=== PATIENT | female | born 1995 | race American Indian/Alaskan Native ===

== ENCOUNTER 2017-08-06 06:14 | Inpatient (IN) | payer BC ==
[2017-08-06 07:12] LABS: Alanine Aminotransferase 8 units/L (7-56); Albumin 3.4 g/dL (3.9-5); BUN/Creatinine Ratio 16; Blood Urea Nitrogen 11 mg/dL (7-17); Calcium 8.8 mg/dL (8.4-10.2); Hemolysis Index 0
[2017-08-06 07:25] LABS: Hematocrit 27.8 % (30.3-42.9); Hemoglobin 8.3 gm/dl (10.1-14.3); Mean Corpuscular Volume 64 fl (79-97); Red Blood Count 4.33 M/mm3 (3.65-5.03)
[2017-08-06 07:26] LABS: Mean Corpuscular HGB Conc 30 % (30-34); Mean Corpuscular Hemoglobin 19 pg (28-32); Platelet Count 532 K/mm3 (140-440); Red Cell Distribution Width 18.3 % (13.2-15.2)
[2017-08-06 08:10] LABS: Anisocytosis 1+; Band Neutrophils # (Manual) 0.3 K/mm3; Basophils % (Manual) 0 % (0.0-1.8); Hypochromasia 1+; Total Cells Counted 100
[2017-08-06 08:11] LABS: Ovalocytes Few; Platelet Estimate Consistent w Auto
--- NOTE | 2017-08-06 09:17 | Emergency Department Report ---
ED N/V/D HPI - General Chief complaint: Nausea/Vomiting/Diarrhea Stated complaint: N/V/D Time Seen by Provider: 08/06/17 09:11 Source: patient, family Mode of arrival: Ambulatory Limitations: No Limitations - History of Present Illness Initial comments: This is a 22-year-old female here for nausea vomiting and diarrhea with history of Crohn's disease. She should take steroids for her Crohn's disease. Patient believes that she is having a Crohn's flare up. She is reporting abdominal pain at 8 out of 10. Denies any back pain. Denies any surgical history. Pain is localized to her upper and lower abdomen but mostly laterally to the left abdomen. Reports chills but she says she didn't take a temperature. Similar symptoms a Crohn's flareup. Last menstrual period for 02/15/2018. This started yesterday and she's had perforations several episodes of nausea vomiting and diarrhea. Nothing makes pain better and nothing makes it worse that she has not taken anything for pain. MD complaint: nausea, vomiting, diarrhea, abdominal pain -: Last night Description of Vomiting: bilious Description of Diarrhea: water, blood-streaked Associated Abdominal Pain: Yes Location: diffuse Radiation: none Severity: severe Pain Scale: 8 Quality: cramping, aching Consistency: constant Improves with: none Worsens with: none Context: other (history of Crohn's disease) Associated Symptoms: fever/chills, loss of appetite, nausea/vomiting. denies: myalgias, chest pain, cough, diaphoresis, headaches, malaise, rash, dysuria, shortness of breath, syncope, weakness - Related Data Home Medications Medication Instructions Recorded Confirmed Last Taken Cholecalciferol (Vitamin D3) 2,000 unit PO DAILY 08/06/17 08/06/17 Unknown [Vitamin D3] Multivitamin/Iron/Folic Acid 1 each PO DAILY 08/06/17 08/06/17 Unknown [Centrum Women Tablet] [place]-3 Fatty Acids/Fish Oil [Fish 1 each PO DAILY 08/06/17 08/06/17 Unknown Oil] predniSONE [Deltasone] 60 mg PO QDAY 08/06/17 08/06/17 Unknown Allergies Allergy/AdvReac Type Severity Reaction Status Date / Time shellfish derived AdvReac Vomiting Verified 08/06/17 06:25 ED Review of Systems ROS: Stated complaint: N/V/D Other details as noted in HPI Comment: All other systems reviewed and negative Constitutional: malaise, weakness. denies: chills Eyes: denies: eye pain, eye discharge, vision change ENT: denies: ear pain, throat pain Respiratory: denies: cough, shortness of breath, SOB with exertion, SOB at rest , stridor, wheezing, other Cardiovascular: denies: chest pain, palpitations, dyspnea on exertion, edema, syncope, paroxysmal nocturnal dyspnea Gastrointestinal: abdominal pain, nausea, vomiting, diarrhea, hematochezia. denies: constipation, hematemesis, melena Genitourinary: denies: urgency, dysuria, frequency, hematuria, discharge, abnormal menses Musculoskeletal: denies: back pain, joint swelling, arthralgia Skin: denies: rash, lesions Neurological: weakness. denies: headache ED Past Medical Hx - Past Medical History Previous Medical History?: Yes Additional medical history: crohn's disease - Surgical History Past Surgical History?: No - Family History Family history: hypertension - Social History Smoking Status: Never Smoker Substance Use Type: None Other Social History: single and lives with room mates - Medications Home Medications: Home Medications Medication Instructions Recorded Confirmed Last Taken Type Cholecalciferol (Vitamin D3) 2,000 unit PO DAILY 08/06/17 08/06/17 Unknown History [Vitamin D3] Multivitamin/Iron/Folic Acid 1 each PO DAILY 08/06/17 08/06/17 Unknown History [Centrum Women Tablet] [place]-3 Fatty Acids/Fish Oil [Fish 1 each PO DAILY 08/06/17 08/06/17 Unknown History Oil] predniSONE [Deltasone] 60 mg PO QDAY 08/06/17 08/06/17 Unknown History ED Physical Exam - General Limitations: No Limitations General appearance: alert, in no apparent distress - Head Head exam: Present: atraumatic, normocephalic, normal inspection - Eye Eye exam: Present: normal appearance, PERRL, EOMI Pupils: Present: normal accommodation - ENT ENT exam: Present: normal orophraynx, mucous membranes dry, TM's normal bilaterally, normal external ear exam - Neck Neck exam: Present: normal inspection, full ROM, other (no C-spine tenderness). Absent: tenderness, lymphadenopathy - Respiratory Respiratory exam: Present: normal lung sounds bilaterally. Absent: respiratory distress, chest wall tenderness - Cardiovascular Cardiovascular Exam: Present: normal rhythm, tachycardia, normal heart sounds. Absent: systolic murmur, diastolic murmur - GI/Abdominal GI/Abdominal exam: Present: soft, tenderness, guarding, rebound, normal bowel sounds. Absent: distended, rigid, organomegaly, mass, bruit, pulsatile mass, hernia - Extremities Exam Extremities exam: Present: normal inspection, full ROM, normal capillary refill , other (no clubbing, cyanosis or edema. +2 pulses to all extremities.). Absent: tenderness, pedal edema, joint swelling, calf tenderness - Back Exam Back exam: Present: normal inspection, full ROM, other (ambulates without any difficulties). Absent: tenderness, CVA tenderness (R), CVA tenderness (L), muscle spasm, paraspinal tenderness, vertebral tenderness, rash noted - Neurological Exam Neurological exam: Present: alert, oriented X3, normal gait - Psychiatric Psychiatric exam: Present: normal affect, normal mood - Skin Skin exam: Present: warm, dry, intact, normal color. Absent: rash ED Course Vital Signs 08/06/17 08/06/17 08/06/17 06:21 12:30 12:49 Temperature 99.7 F H 98.1 F 98.5 F Pulse Rate 108 H 93 H 98 H Respiratory 16 15 Rate Blood Pressure 110/70 99/62 Blood Pressure 108/68 [Right] O2 Sat by Pulse 99 100 100 Oximetry - Reevaluation(s) Reevaluation #1: 08/06/17 10:14 Patient's given Zofran 4 mg for nausea and morphine 4 mg IV for pain. Pain is better. Awaiting CT scan with IV contrast. Labs are stable and urinalysis positive for urinary tract infection and positive ketones suggesting dehydration. Patient to start an IV fluids. Reevaluation #2: 08/06/17 11:54 Patient is requesting pain medication. She said her pain is 510. She was given morphine [address] scan showed colitis secondary to Crohn's. Patient to receive Tylenol 975 mg by mouth for fever. Started on Levaquin 750 mg IV and Flagyl 5oo mg iv for colitis. Patient updated on all labs and CT scan results. And plans to admit and she agrees. Dr. White spoke with Dr. Kelly regarding admission. Abdominal exam remained tender to palpate. ED Medical Decision Making - Lab Data Result diagrams: 08/06/17 06:32 08/06/17 06:32 Lab Results 08/06/17 08/06/17 08/06/17 Range/Units 06:32 06:32 09:45 WBC 10.6 (4.5-11.0) K/mm3 RBC 4.33 (3.65-5.03) M/mm3 Hgb 8.3 L (10.1-14.3) gm/dl Hct 27.8 L (30.3-42.9) % MCV 64 L (79-97) fl MCH 19 L (28-32) pg MCHC 30 (30-34) % RDW 18.3 H (13.2-15.2) % Plt Count 532 H (140-440) K/mm3 [place] % (Auto) Disulfurizer Tender Add Manual Diff Complete Total Counted 100 Seg Neuts % (Manual) 54.0 (40.0-70.0) % Band Neutrophils % 3.0 % Lymphocytes % (Manual) 26.0 (13.4-35.0) % Reactive Lymphs % (Man) 0 % Monocytes % (Manual) 15.0 H (0.0-7.3) % Eosinophils % (Manual) 2.0 (0.0-4.3) % Basophils % (Manual) 0 (0.0-1.8) % Metamyelocytes % 0 % Myelocytes % 0 % Promyelocytes % 0 % Blast Cells % 0 % Nucleated RBC % Not Reportable Seg Neutrophils # Man 5.7 (1.8-7.7) K/mm3 Band Neutrophils # 0.3 K/mm3 Lymphocytes # (Manual) 2.8 (1.2-5.4) K/mm3 Abs React Lymphs (Man) 0.0 K/mm3 Monocytes # (Manual) 1.6 H (0.0-0.8) K/mm3 Eosinophils # (Manual) 0.2 (0.0-0.4) K/mm3 Basophils # (Manual) 0.0 (0.0-0.1) K/mm3 Metamyelocytes # 0.0 K/mm3 Myelocytes # 0.0 K/mm3 Promyelocytes # 0.0 K/mm3 Blast Cells # 0.0 K/mm3 WBC Morphology Not Reportable Hypersegmented Neuts Not Reportable Hyposegmented Neuts Not Reportable Hypogranular Neuts Not Reportable Smudge Cells Not Reportable Toxic Granulation Not Reportable Toxic Vacuolation Not Reportable Dohle Bodies Not Reportable Pelger-Huet Anomaly Not Reportable Rosy Rods Not Reportable Platelet Estimate Consistent w auto Clumped Platelets Not Reportable Plt Clumps, EDTA Not Reportable Large Platelets Not Reportable Giant Platelets Not Reportable Platelet Satelliting Not Reportable Plt Morphology Comment Not Reportable RBC Morphology Not Reportable Dimorphic RBCs Not Reportable Polychromasia Not Reportable Hypochromasia 1+ Poikilocytosis Not Reportable Anisocytosis 1+ Microcytosis 1+ Macrocytosis Not Reportable Spherocytes Not Reportable Pappenheimer Bodies Not Reportable Sickle Cells Not Reportable Target Cells Not Reportable Tear Drop Cells Not Reportable Ovalocytes Few Helmet Cells Not Reportable [place] Bodies Not Reportable [place] Rings Not Reportable Hancock Cells Not Reportable Bite Cells Not Reportable Crenated Cell Not Reportable Elliptocytes Not Reportable Acanthocytes (Spur) Not Reportable Rouleaux Not Reportable Hemoglobin C Crystals Not Reportable Schistocytes Not Reportable Malaria parasites Not Reportable Wale Bodies Not Reportable Hem Pathologist Commnt No Sodium 142 (137-145) mmol/L Potassium 3.2 L (3.6-5.0) mmol/L Chloride 101.5 (98-107) mmol/L Carbon Dioxide 28 (22-30) mmol/L Anion Gap 16 mmol/L BUN 11 (7-17) mg/dL Creatinine 0.7 (0.7-1.2) mg/dL Estimated GFR > 60 ml/min BUN/Creatinine Ratio 16 % Glucose 94 (65-100) mg/dL Calcium 8.8 (8.4-10.2) mg/dL Total Bilirubin 0.30 (0.1-1.2) mg/dL AST 8 (5-40) units/L ALT 8 (7-56) units/L Alkaline Phosphatase 61 (35-129) units/L Total Protein 6.7 (6.3-8.2) g/dL Albumin 3.4 L (3.9-5) g/dL Albumin/Globulin Ratio 1.0 % Urine Color Yellow (Yellow) Urine Turbidity Clear (Clear) Urine pH 5.0 (5.0-7.0) Ur Specific [place] 1.024 (1.003-1.030) Urine Protein 30 mg/dl (Negative) mg/dL Urine Glucose (UA) Neg (Negative) mg/dL Urine Ketones Neg (Negative) mg/dL Urine Blood Mod (Negative) Urine Nitrite Neg (Negative) Urine Bilirubin Neg (Negative) Urine Urobilinogen < 2.0 (<2.0) mg/dL Ur Leukocyte Esterase Sm (Negative) Urine WBC (Auto) 8.0 H (0.0-6.0) /HPF Urine RBC (Auto) 9.0 (0.0-6.0) /HPF U Epithel Cells (Auto) 41.0 H (0-13.0) /HPF Urine Bacteria (Auto) 1+ (Negative) /HPF Urine Mucus 1+ /HPF Urine HCG, Qual (Negative) 08/06/17 Range/Units 10:09 WBC (4.5-11.0) K/mm3 RBC (3.65-5.03) M/mm3 Hgb (10.1-14.3) gm/dl Hct (30.3-42.9) % MCV (79-97) fl MCH (28-32) pg MCHC (30-34) % RDW (13.2-15.2) % Plt Count (140-440) K/mm3 [place] % (Auto) Add Manual Diff Total Counted Seg Neuts % (Manual) (40.0-70.0) % Band Neutrophils % % Lymphocytes % (Manual) (13.4-35.0) % Reactive Lymphs % (Man) % Monocytes % (Manual) (0.0-7.3) % Eosinophils % (Manual) (0.0-4.3) % Basophils % (Manual) (0.0-1.8) % Metamyelocytes % % Myelocytes % % Promyelocytes % % Blast Cells % % Nucleated RBC % Seg Neutrophils # Man (1.8-7.7) K/mm3 Band Neutrophils # K/mm3 Lymphocytes # (Manual) (1.2-5.4) K/mm3 Abs React Lymphs (Man) K/mm3 Monocytes # (Manual) (0.0-0.8) K/mm3 Eosinophils # (Manual) (0.0-0.4) K/mm3 Basophils # (Manual) (0.0-0.1) K/mm3 Metamyelocytes # K/mm3 Myelocytes # K/mm3 Promyelocytes # K/mm3 Blast Cells # K/mm3 WBC Morphology Hypersegmented Neuts Hyposegmented Neuts Hypogranular Neuts Smudge Cells Toxic Granulation Toxic Vacuolation Dohle Bodies Pelger-Huet Anomaly Rosy Rods Platelet Estimate Clumped Platelets Plt Clumps, EDTA Large Platelets Giant Platelets Platelet Satelliting Plt Morphology Comment RBC Morphology Dimorphic RBCs Polychromasia Hypochromasia Poikilocytosis Anisocytosis Microcytosis Macrocytosis Spherocytes Pappenheimer Bodies Sickle Cells Target Cells Tear Drop Cells Ovalocytes Helmet Cells [place] Bodies [place] Rings Hancock Cells Bite Cells Crenated Cell Elliptocytes Acanthocytes (Spur) Rouleaux Hemoglobin C Crystals Schistocytes Malaria parasites Wale Bodies Hem Pathologist Commnt Sodium (137-145) mmol/L Potassium (3.6-5.0) mmol/L Chloride (98-107) mmol/L Carbon Dioxide (22-30) mmol/L Anion Gap mmol/L BUN (7-17) mg/dL Creatinine (0.7-1.2) mg/dL Estimated GFR ml/min BUN/Creatinine Ratio % Glucose (65-100) mg/dL Calcium (8.4-10.2) mg/dL Total Bilirubin (0.1-1.2) mg/dL AST (5-40) units/L ALT (7-56) units/L Alkaline Phosphatase (35-129) units/L Total Protein (6.3-8.2) g/dL Albumin (3.9-5) g/dL Albumin/Globulin Ratio % Urine Color (Yellow) Urine Turbidity (Clear) Urine pH (5.0-7.0) Ur Specific [place] (1.003-1.030) Urine Protein (Negative) mg/dL Urine Glucose (UA) (Negative) mg/dL Urine Ketones (Negative) mg/dL Urine Blood (Negative) Urine Nitrite (Negative) Urine Bilirubin (Negative) Urine Urobilinogen (<2.0) mg/dL Ur Leukocyte Esterase (Negative) Urine WBC (Auto) (0.0-6.0) /HPF Urine RBC (Auto) (0.0-6.0) /HPF U Epithel Cells (Auto) (0-13.0) /HPF Urine Bacteria (Auto) (Negative) /HPF Urine Mucus /HPF Urine HCG, Qual Negative (Negative) Blood culture and urine culture pending Lactic acid pending - Radiology Data Radiology results: report reviewed Patient: RAISA JORDAN MR#: [id number] : 1995 Acct:[id number] Age/Sex: 22 / F ADM Date: 08/06/17 Loc: ED Attending Dr: Ordering Physician: OLGA LARRY Date of Service: 08/06/17 Procedure(s): CT abdomen pelvis w con Accession Number(s): [id number] cc: OLGA LARRY CT ABDOMEN AND PELVIS WITH CONTRAST INDICATION: Abdominal pain, nausea, vomiting, diarrhea. COMPARISON: None similar at this institution. FINDINGS: Abdomen and pelvis CT performed following intravenous administration of 100 cc of Omnipaque 300. LUNG BASES: Borderline cardiomegaly. No effusions. Nonspecific distal esophageal wall prominence/thickening, not excluded for gastroesophageal reflux and/or hiatal hernia, amongst others. ABDOMEN: Left hepatic lobe tip wraps around the spleen in the left upper quadrant. Otherwise unremarkable liver, spleen, gallbladder, pancreas, adrenals, aorta, IVC and kidneys. Nonopacified GI tract evaluation limited, though small bowel grossly nonobstructive. Normal appendix. Ascending colon stool. Distal ascending colon from about the hepatic flexure, transverse and entire descending colon though demonstrates diffuse wall thickening. Patent celiac axis, SMA and CEDRIC. No ascites. Few pericolonic lymph nodes as in the upper abdomen measure up to 1.2 cm, axial series 2, image 31. Few other smaller retroperitoneal and mesenteric lymph nodes also seen. PELVIS: Diffuse rectosigmoid wall thickening may extend up to the anus. Few small perirectal lymph nodes measure up to 0.6 cm as on axial image 74, series 2. Urinary bladder, uterus and adnexa/ovaries appear within normal CT limits. No ascites. Unremarkable bones. CONCLUSION: 1. Extensive colitis extending from about the hepatic flexure distally to the anus, possibly infectious or inflammatory, including ulcerative colitis, as described. Please correlate. 2. Few other incidental findings, as above. Thank you for the opportunity to participate in this patient's care. Transcribed By: RS Dictated By: FAN KHALIL MD Electronically Authenticated By: FAN KHALIL MD Signed Date/Time: 08/06/17 1118 - Medical Decision Making Patient: RAISA JORDAN MR#: [id number] : 1995 Acct:[id number] Age/Sex: 22 / F ADM Date: 08/06/17 Loc: ED Attending Dr: Ordering Physician: OLGA LARRY Date of Service: 08/06/17 Procedure(s): CT abdomen pelvis w con Accession Number(s): [id number] cc: OLGA LARRY CT ABDOMEN AND PELVIS WITH CONTRAST INDICATION: Abdominal pain, nausea, vomiting, diarrhea. COMPARISON: None similar at this institution. FINDINGS: Abdomen and pelvis CT performed following intravenous administration of 100 cc of Omnipaque 300. LUNG BASES: Borderline cardiomegaly. No effusions. Nonspecific distal esophageal wall prominence/thickening, not excluded for gastroesophageal reflux and/or hiatal hernia, amongst others. ABDOMEN: Left hepatic lobe tip wraps around the spleen in the left upper quadrant. Otherwise unremarkable liver, spleen, gallbladder, pancreas, adrenals, aorta, IVC and kidneys. Nonopacified GI tract evaluation limited, though small bowel grossly nonobstructive. Normal appendix. Ascending colon stool. Distal ascending colon from about the hepatic flexure, transverse and entire descending colon though demonstrates diffuse wall thickening. Patent celiac axis, SMA and CEDRIC. No ascites. Few pericolonic lymph nodes as in the upper abdomen measure up to 1.2 cm, axial series 2, image 31. Few other smaller retroperitoneal and mesenteric lymph nodes also seen. PELVIS: Diffuse rectosigmoid wall thickening may extend up to the anus. Few small perirectal lymph nodes measure up to 0.6 cm as on axial image 74, series 2. Urinary bladder, uterus and adnexa/ovaries appear within normal CT limits. No ascites. Unremarkable bones. CONCLUSION: 1. Extensive colitis extending from about the hepatic flexure distally to the anus, possibly infectious or inflammatory, including ulcerative colitis, as described. Please correlate. 2. Few other incidental findings, as above. Thank you for the opportunity to participate in this patient's care. Transcribed By: RS Dictated By: FAN KHALIL MD Electronically Authenticated By: FAN KHALIL MD Signed Date/Time: 08/06/17 1118 - Differential Diagnosis Crohn's flare, colitis, UTI, pyelonephritis, gastroenteritis Critical care attestation.: If time is entered above; I have spent that time in minutes in the direct care of this critically ill patient, excluding procedure time. ED Disposition Clinical Impression: Fever in adult, Nausea, vomiting, and diarrhea Crohn's colitis Qualifiers: Digestive disease complication type: unspecified complication Qualified Code(s) : K50.119 - Crohn's disease of large intestine with unspecified complications Abdominal pain Qualifiers: Abdominal location: generalized Qualified Code(s): R10.84 - Generalized abdominal pain Disposition: OP ADMIT IP TO THIS HOSP Is pt being admited?: Yes Does the pt Need Aspirin: No Condition: Stable
[2017-08-06] MEDS ORDERED: MORPHINE IV ONE ×2 (09:20→11:51)
[2017-08-06] MEDS ORDERED: ZOFRAN IV ONE (09:20)
[2017-08-06 10:21] LABS: HCG Qualitative,Urine Negative (Negative)
[2017-08-06 10:22] LABS: Bacteria,Urine 1+ /HPF (Negative); Bilirubin,Urine NEG (Negative); Blood,Urine MOD (Negative); Color,Urine Yellow (Yellow); Mucus,Urine 1+ /HPF; Urobilinogen,Urine < 2.0 mg/dL (<2.0)
[2017-08-06] MEDS ORDERED: NACL 0.9% 1000 ML 1,000 ML IV ONE (11:13)
[2017-08-06] MEDS ORDERED: ROCEPHIN/NS 1 GM/50 ML 1 GM/50 ML BAG IV ONE (11:13)
--- NOTE | 2017-08-06 11:24 | Cat Scan Report ---
CT ABDOMEN AND PELVIS WITH CONTRAST INDICATION: Abdominal pain, nausea, vomiting, diarrhea. COMPARISON: None similar at this institution. FINDINGS: Abdomen and pelvis CT performed following intravenous administration of 100 cc of Omnipaque 300. LUNG BASES: Borderline cardiomegaly. No effusions. Nonspecific distal esophageal wall prominence/thickening, not excluded for gastroesophageal reflux and/or hiatal hernia, amongst others. ABDOMEN: Left hepatic lobe tip wraps around the spleen in the left upper quadrant. Otherwise unremarkable liver, spleen, gallbladder, pancreas, adrenals, aorta, IVC and kidneys. Nonopacified GI tract evaluation limited, though small bowel grossly nonobstructive. Normal appendix. Ascending colon stool. Distal ascending colon from about the hepatic flexure, transverse and entire descending colon though demonstrates diffuse wall thickening. Patent celiac axis, SMA and CEDRIC. No ascites. Few pericolonic lymph nodes as in the upper abdomen measure up to 1.2 cm, axial series 2, image 31. Few other smaller retroperitoneal and mesenteric lymph nodes also seen. PELVIS: Diffuse rectosigmoid wall thickening may extend up to the anus. Few small perirectal lymph nodes measure up to 0.6 cm as on axial image 74, series 2. Urinary bladder, uterus and adnexa/ovaries appear within normal CT limits. No ascites. Unremarkable bones. CONCLUSION: 1. Extensive colitis extending from about the hepatic flexure distally to the anus, possibly infectious or inflammatory, including ulcerative colitis, as described. Please correlate. 2. Few other incidental findings, as above. Thank you for the opportunity to participate in this patient's care.
[2017-08-06] MEDS ORDERED: LEVAQUIN 750MG/150ML 750 MG/150 ML BAG IV ONE (11:33)
[2017-08-06] MEDS ORDERED: SODIUM CHLORIDE FLUSH SYRINGE 10 ML IV PRN (11:47)
[2017-08-06] MEDS ORDERED: cefTRIAXone 1 GM in NACL 0.9% 20 ML IV ONE (12:00)
--- NOTE | 2017-08-06 12:02 | Emergency Department Report ---
Blank Doc - Documentation Documentation: [id number] evaluation is done by me and I agree with the AP P evaluation and documentation. Patient showing significant pain secondary to Crohn's exacerbation. Patient will be admitted to the hospitalist service. The patient has received Levaquin and Flagyl for antibiotic therapy.
[2017-08-06] MEDS: TYLENOL PO ONE ×2 (12:29→12:33)
[2017-08-06] MEDS: FLAGYL 500 MG/100 ML 500 MG/100 ML BAG IV SCH ×3 (15:21→21:41)
--- NOTE | 2017-08-06 16:18 | History and Physical Report ---
History of Present Illness Date of admission: 08/06/17 11:47 Medications and Allergies Allergies Allergy/AdvReac Type Severity Reaction Status Date / Time shellfish derived AdvReac Vomiting Verified 08/06/17 06:25 Home Medications Medication Instructions Recorded Confirmed Last Taken Type Cholecalciferol (Vitamin D3) 2,000 unit PO DAILY 08/06/17 08/06/17 Unknown History [Vitamin D3] Multivitamin/Iron/Folic Acid 1 each PO DAILY 08/06/17 08/06/17 Unknown History [Centrum Women Tablet] [place]-3 Fatty Acids/Fish Oil [Fish 1 each PO DAILY 08/06/17 08/06/17 Unknown History Oil] predniSONE [Deltasone] 60 mg PO QDAY 08/06/17 08/06/17 Unknown History Active Meds: Active Medications Metronidazole (Flagyl 500 Mg/100 Ml) 500 mg in 100 mls @ 200 mls/hr IV ONCE BONG Last Admin: 08/06/17 15:21 Dose: 200 mls/hr Sodium Chloride (Sodium Chloride Flush Syringe 10 Ml) 10 ml IV PRN PRN PRN Reason: LINE FLUSH Exam - Constitutional Vitals: Temp Pulse Resp BP Pulse Ox 99.1 F 93 H 18 99/57 100 08/06/17 14:53 08/06/17 14:53 08/06/17 14:53 08/06/17 14:53 08/06/17 14:53 Results - Labs CBC & Chem 7: 08/06/17 06:32 08/06/17 06:32 Labs: Laboratory Last Values WBC 10.6 K/mm3 (4.5-11.0) 08/06/17 06:32 RBC 4.33 M/mm3 (3.65-5.03) 08/06/17 06:32 Hgb 8.3 gm/dl (10.1-14.3) L 08/06/17 06:32 Hct 27.8 % (30.3-42.9) L 08/06/17 06:32 MCV 64 fl (79-97) L 08/06/17 06:32 MCH 19 pg (28-32) L 08/06/17 06:32 MCHC 30 % (30-34) 08/06/17 06:32 RDW 18.3 % (13.2-15.2) H 08/06/17 06:32 Plt Count 532 K/mm3 (140-440) H 08/06/17 06:32 [place] % (Auto) Horticulture Superintendent 08/06/17 06:32 Add Manual Diff Complete 08/06/17 06:32 Total Counted 100 08/06/17 06:32 Seg Neuts % (Manual) 54.0 % (40.0-70.0) 08/06/17 06:32 Band Neutrophils % 3.0 % 08/06/17 06:32 Lymphocytes % (Manual) 26.0 % (13.4-35.0) 08/06/17 06:32 Reactive Lymphs % (Man) 0 % 08/06/17 06:32 Monocytes % (Manual) 15.0 % (0.0-7.3) H 08/06/17 06:32 Eosinophils % (Manual) 2.0 % (0.0-4.3) 08/06/17 06:32 Basophils % (Manual) 0 % (0.0-1.8) 08/06/17 06:32 Metamyelocytes % 0 % 08/06/17 06:32 Myelocytes % 0 % 08/06/17 06:32 Promyelocytes % 0 % 08/06/17 06:32 Blast Cells % 0 % 08/06/17 06:32 Nucleated RBC % Not Reportable 08/06/17 06:32 Seg Neutrophils # Man 5.7 K/mm3 (1.8-7.7) 08/06/17 06:32 Band Neutrophils # 0.3 K/mm3 08/06/17 06:32 Lymphocytes # (Manual) 2.8 K/mm3 (1.2-5.4) 08/06/17 06:32 Abs React Lymphs (Man) 0.0 K/mm3 08/06/17 06:32 Monocytes # (Manual) 1.6 K/mm3 (0.0-0.8) H 08/06/17 06:32 Eosinophils # (Manual) 0.2 K/mm3 (0.0-0.4) 08/06/17 06:32 Basophils # (Manual) 0.0 K/mm3 (0.0-0.1) 08/06/17 06:32 Metamyelocytes # 0.0 K/mm3 08/06/17 06:32 Myelocytes # 0.0 K/mm3 08/06/17 06:32 Promyelocytes # 0.0 K/mm3 08/06/17 06:32 Blast Cells # 0.0 K/mm3 08/06/17 06:32 WBC Morphology Not Reportable 08/06/17 06:32 Hypersegmented Neuts Not Reportable 08/06/17 06:32 Hyposegmented Neuts Not Reportable 08/06/17 06:32 Hypogranular Neuts Not Reportable 08/06/17 06:32 Smudge Cells Not Reportable 08/06/17 06:32 Toxic Granulation Not Reportable 08/06/17 06:32 Toxic Vacuolation Not Reportable 08/06/17 06:32 Dohle Bodies Not Reportable 08/06/17 06:32 Pelger-Huet Anomaly Not Reportable 08/06/17 06:32 Rosy Rods Not Reportable 08/06/17 06:32 Platelet Estimate Consistent w auto 08/06/17 06:32 Clumped Platelets Not Reportable 08/06/17 06:32 Plt Clumps, EDTA Not Reportable 08/06/17 06:32 Large Platelets Not Reportable 08/06/17 06:32 Giant Platelets Not Reportable 08/06/17 06:32 Platelet Satelliting Not Reportable 08/06/17 06:32 Plt Morphology Comment Not Reportable 08/06/17 06:32 RBC Morphology Not Reportable 08/06/17 06:32 Dimorphic RBCs Not Reportable 08/06/17 06:32 Polychromasia Not Reportable 08/06/17 06:32 Hypochromasia 1+ 08/06/17 06:32 Poikilocytosis Not Reportable 08/06/17 06:32 Anisocytosis 1+ 08/06/17 06:32 Microcytosis 1+ 08/06/17 06:32 Macrocytosis Not Reportable 08/06/17 06:32 Spherocytes Not Reportable 08/06/17 06:32 Pappenheimer Bodies Not Reportable 08/06/17 06:32 Sickle Cells Not Reportable 08/06/17 06:32 Target Cells Not Reportable 08/06/17 06:32 Tear Drop Cells Not Reportable 08/06/17 06:32 Ovalocytes Few 08/06/17 06:32 Helmet Cells Not Reportable 08/06/17 06:32 Desir-[place] Bodies Not Reportable 08/06/17 06:32 [place] Rings Not Reportable 08/06/17 06:32 [place] Cells Not Reportable 08/06/17 06:32 Bite Cells Not Reportable 08/06/17 06:32 Crenated Cell Not Reportable 08/06/17 06:32 Elliptocytes Not Reportable 08/06/17 06:32 Acanthocytes (Spur) Not Reportable 08/06/17 06:32 Rouleaux Not Reportable 08/06/17 06:32 Hemoglobin C Crystals Not Reportable 08/06/17 06:32 Schistocytes Not Reportable 08/06/17 06:32 Malaria parasites Not Reportable 08/06/17 06:32 Wale Bodies Not Reportable 08/06/17 06:32 Hem Pathologist Commnt No 08/06/17 06:32 Sodium 142 mmol/L (137-145) 08/06/17 06:32 Potassium 3.2 mmol/L (3.6-5.0) L 08/06/17 06:32 Chloride 101.5 mmol/L (98-107) 08/06/17 06:32 Carbon Dioxide 28 mmol/L (22-30) 08/06/17 06:32 Anion Gap 16 mmol/L 08/06/17 06:32 BUN 11 mg/dL (7-17) 08/06/17 06:32 Creatinine 0.7 mg/dL (0.7-1.2) 08/06/17 06:32 Estimated GFR > 60 ml/min 08/06/17 06:32 BUN/Creatinine Ratio 16 % 08/06/17 06:32 Glucose 94 mg/dL (65-100) 08/06/17 06:32 Lactic Acid 0.70 mmol/L (0.7-2.0) 08/06/17 12:02 Calcium 8.8 mg/dL (8.4-10.2) 08/06/17 06:32 Total Bilirubin 0.30 mg/dL (0.1-1.2) 08/06/17 06:32 AST 8 units/L (5-40) 08/06/17 06:32 ALT 8 units/L (7-56) 08/06/17 06:32 Alkaline Phosphatase 61 units/L (35-129) 08/06/17 06:32 Total Protein 6.7 g/dL (6.3-8.2) 08/06/17 06:32 Albumin 3.4 g/dL (3.9-5) L 08/06/17 06:32 Albumin/Globulin Ratio 1.0 % 08/06/17 06:32 Urine Color Yellow (Yellow) 08/06/17 09:45 Urine Turbidity Clear (Clear) 08/06/17 09:45 Urine pH 5.0 (5.0-7.0) 08/06/17 09:45 Ur Specific [place] 1.024 (1.003-1.030) 08/06/17 09:45 Urine Protein 30 mg/dl mg/dL (Negative) 08/06/17 09:45 Urine Glucose (UA) Neg mg/dL (Negative) 08/06/17 09:45 Urine Ketones Neg mg/dL (Negative) 08/06/17 09:45 Urine Blood Mod (Negative) 08/06/17 09:45 Urine Nitrite Neg (Negative) 08/06/17 09:45 Urine Bilirubin Neg (Negative) 08/06/17 09:45 Urine Urobilinogen < 2.0 mg/dL (<2.0) 08/06/17 09:45 Ur Leukocyte Esterase Sm (Negative) 08/06/17 09:45 Urine WBC (Auto) 8.0 /HPF (0.0-6.0) H 08/06/17 09:45 Urine RBC (Auto) 9.0 /HPF (0.0-6.0) 08/06/17 09:45 U Epithel Cells (Auto) 41.0 /HPF (0-13.0) H 08/06/17 09:45 Urine Bacteria (Auto) 1+ /HPF (Negative) 08/06/17 09:45 Urine Mucus 1+ /HPF 08/06/17 09:45 Urine HCG, Qual Negative (Negative) 08/06/17 10:09 Assessment and Plan Assessment and plan: This is a 22-year-old female here for nausea vomiting and diarrhea with history of Crohn's disease. She should take steroids for her Crohn's disease. Patient believes that she is having a Crohn's flare up. She is reporting abdominal pain at 8 out of 10. Denies any back pain. Denies any surgical history. Pain is localized to her upper and lower abdomen but mostly laterally to the left abdomen. Reports chills but she says she didn't take a temperature. Similar symptoms a Crohn's flareup. Last menstrual period for 02/15/2018. This started yesterday and she's had perforations several episodes of nausea vomiting and diarrhea. Nothing makes pain better and nothing makes it worse that she has not taken anything for pain. CT abdomen and pelvis, image reviewed Extensive colitis extending from about the hepatic flexure distally to the anus, possibly infectious or inflammatory, including ulcerative colitis, as described. Please correlate. Crohn's flare, colitis, UTI, pyelonephritis, gastroenteritis Crohns flare steroids and pain meds, and ivf Colitis; likely due to crohns , possibly infectious abx, stool studies, GI consult Sepsis; uti fup urine cx, continue abx AOCD fup hg, iron supplements hypokalemia replete DVT ppx early ambulation
[2017-08-06] MEDS ORDERED: TYLENOL PO PRN (16:19)
[2017-08-06] MEDS ORDERED: ZOFRAN IV PRN (16:19)
[2017-08-06] MEDS ORDERED: PERCOCET 5/325 PO PRN (16:54)
[2017-08-06] MEDS: NS/KCL 20MEQ 20 MEQ/1,000 ML BAG IV SCH (17:10)
[2017-08-06] MEDS: DILAUDID IV PRN (17:10)
[2017-08-07] MEDS: NS/KCL 20MEQ 20 MEQ/1,000 ML BAG IV SCH ×3 (01:47→21:26)
[2017-08-07] MEDS: FLAGYL 500 MG/100 ML 500 MG/100 ML BAG IV SCH ×4 (05:50→21:26)
[2017-08-07 07:05] LABS: Hematocrit 29.3 % (30.3-42.9); Hemoglobin 8.6 gm/dl (10.1-14.3); Mean Corpuscular Volume 65 fl (79-97); Red Blood Count 4.54 M/mm3 (3.65-5.03)
[2017-08-07 07:06] LABS: Mean Corpuscular Hemoglobin 19 pg (28-32)
[2017-08-07 07:07] LABS: BUN/Creatinine Ratio 10; Blood Urea Nitrogen 6 mg/dL (7-17); Calcium 8.4 mg/dL (8.4-10.2); Hemolysis Index 5; Mean Corpuscular HGB Conc 29 % (30-34); Mean Platelet Volume 6.5 fl (6-12); Platelet Count 560 K/mm3 (140-440); Red Cell Distribution Width 18.5 % (13.2-15.2)
[2017-08-07 08:32] LABS: Band Neutrophils # (Manual) 2.9 K/mm3; Basophils % (Manual) 0 % (0.0-1.8); Eosinophils % (Manual) 0 % (0.0-4.3); Total Cells Counted 100
[2017-08-07 08:33] LABS: Anisocytosis 1+; Hypochromasia 2+; Ovalocytes Few; Platelet Estimate Appears Increased
--- NOTE | 2017-08-07 09:23 | Event Note ---
Date: 08/07/17 - full consult dictated - pt h/o IBD presents w/ flair now doing better - diet as tolerated - probably ok to d/c in am w/ f/u Dr. Gallardo (primary GI)
--- NOTE | 2017-08-07 10:28 | Progress Note ---
Assessment and Plan Assessment and plan: This is a 22-year-old female here for nausea vomiting and diarrhea with history of Crohn's disease. She should take steroids for her Crohn's disease. Patient believes that she is having a Crohn's flare up. She is reporting abdominal pain at 8 out of 10. Denies any back pain. Denies any surgical history. Pain is localized to her upper and lower abdomen but mostly laterally to the left abdomen. Reports chills but she says she didn't take a temperature. Similar symptoms a Crohn's flareup. Last menstrual period for 02/15/2018. This started yesterday and she's had perforations several episodes of nausea vomiting and diarrhea. Nothing makes pain better and nothing makes it worse that she has not taken anything for pain. CT abdomen and pelvis, image reviewed Extensive colitis extending from about the hepatic flexure distally to the anus, possibly infectious or inflammatory, including ulcerative colitis, as described. Please correlate. Crohn's flare, colitis, UTI, pyelonephritis, gastroenteritis Crohns flare steroids and pain meds, and ivf Colitis; likely due to crohns , possibly infectious abx, stool studies, GI consult Sepsis; uti fup urine cx, continue abx AOCD fup hg, iron supplements hypokalemia replete DVT ppx early ambulation Hospitalist Physical - Constitutional Vitals: Temp Pulse Resp BP Pulse Ox 98.4 F 89 19 103/65 100 08/07/17 07:22 08/07/17 07:22 08/07/17 07:22 08/07/17 07:22 08/07/17 07:22 Results - Labs CBC & Chem 7: 08/07/17 06:25 08/07/17 06:25 Labs: Laboratory Last Values WBC 9.0 K/mm3 (4.5-11.0) 08/07/17 06:25 RBC 4.54 M/mm3 (3.65-5.03) 08/07/17 06:25 Hgb 8.6 gm/dl (10.1-14.3) L 08/07/17 06:25 Hct 29.3 % (30.3-42.9) L 08/07/17 06:25 MCV 65 fl (79-97) L 08/07/17 06:25 MCH 19 pg (28-32) L 08/07/17 06:25 MCHC 29 % (30-34) L 08/07/17 06:25 RDW 18.5 % (13.2-15.2) H 08/07/17 06:25 Plt Count 560 K/mm3 (140-440) H 08/07/17 06:25 [place] % (Auto) Inspector Filter Tip 08/06/17 06:32 Add Manual Diff Complete 08/07/17 06:25 Total Counted 100 08/07/17 06:25 Seg Neuts % (Manual) 55.0 % (40.0-70.0) 08/07/17 06:25 Band Neutrophils % 32.0 % 08/07/17 06:25 Lymphocytes % (Manual) 9.0 % (13.4-35.0) L 08/07/17 06:25 Reactive Lymphs % (Man) 0 % 08/07/17 06:25 Monocytes % (Manual) 1.0 % (0.0-7.3) 08/07/17 06:25 Eosinophils % (Manual) 0 % (0.0-4.3) 08/07/17 06:25 Basophils % (Manual) 0 % (0.0-1.8) 08/07/17 06:25 Metamyelocytes % 3.0 % 08/07/17 06:25 Myelocytes % 0 % 08/07/17 06:25 Promyelocytes % 0 % 08/07/17 06:25 Blast Cells % 0 % 08/07/17 06:25 Nucleated RBC % Not Reportable 08/07/17 06:25 Seg Neutrophils # Man 5.0 K/mm3 (1.8-7.7) 08/07/17 06:25 Band Neutrophils # 2.9 K/mm3 08/07/17 06:25 Lymphocytes # (Manual) 0.8 K/mm3 (1.2-5.4) L 08/07/17 06:25 Abs React Lymphs (Man) 0.0 K/mm3 08/07/17 06:25 Monocytes # (Manual) 0.1 K/mm3 (0.0-0.8) 08/07/17 06:25 Eosinophils # (Manual) 0.0 K/mm3 (0.0-0.4) 08/07/17 06:25 Basophils # (Manual) 0.0 K/mm3 (0.0-0.1) 08/07/17 06:25 Metamyelocytes # 0.3 K/mm3 08/07/17 06:25 Myelocytes # 0.0 K/mm3 08/07/17 06:25 Promyelocytes # 0.0 K/mm3 08/07/17 06:25 Blast Cells # 0.0 K/mm3 08/07/17 06:25 WBC Morphology Not Reportable 08/07/17 06:25 Hypersegmented Neuts Not Reportable 08/07/17 06:25 Hyposegmented Neuts Not Reportable 08/07/17 06:25 Hypogranular Neuts Not Reportable 08/07/17 06:25 Smudge Cells Not Reportable 08/07/17 06:25 Toxic Granulation Not Reportable 08/07/17 06:25 Toxic Vacuolation Not Reportable 08/07/17 06:25 Dohle Bodies Not Reportable 08/07/17 06:25 Pelger-Huet Anomaly Not Reportable 08/07/17 06:25 Rosy Rods Not Reportable 08/07/17 06:25 Platelet Estimate Appears increased 08/07/17 06:25 Clumped Platelets Not Reportable 08/07/17 06:25 Plt Clumps, EDTA Not Reportable 08/07/17 06:25 Large Platelets Not Reportable 08/07/17 06:25 Giant Platelets Not Reportable 08/07/17 06:25 Platelet Satelliting Not Reportable 08/07/17 06:25 Plt Morphology Comment Not Reportable 08/07/17 06:25 RBC Morphology Not Reportable 08/07/17 06:25 Dimorphic RBCs Not Reportable 08/07/17 06:25 Polychromasia Not Reportable 08/07/17 06:25 Hypochromasia 2+ 08/07/17 06:25 Poikilocytosis Not Reportable 08/07/17 06:25 Anisocytosis 1+ 08/07/17 06:25 Microcytosis 1+ 08/07/17 06:25 Macrocytosis Not Reportable 08/07/17 06:25 Spherocytes Not Reportable 08/07/17 06:25 Pappenheimer Bodies Not Reportable 08/07/17 06:25 Sickle Cells Not Reportable 08/07/17 06:25 Target Cells Not Reportable 08/07/17 06:25 Tear Drop Cells Not Reportable 08/07/17 06:25 Ovalocytes Few 08/07/17 06:25 Helmet Cells Not Reportable 08/07/17 06:25 Desir-[place] Bodies Not Reportable 08/07/17 06:25 [place] Rings Not Reportable 08/07/17 06:25 [place] Cells Not Reportable 08/07/17 06:25 Bite Cells Not Reportable 08/07/17 06:25 Crenated Cell Not Reportable 08/07/17 06:25 Elliptocytes Not Reportable 08/07/17 06:25 Acanthocytes (Spur) Not Reportable 08/07/17 06:25 Rouleaux Not Reportable 08/07/17 06:25 Hemoglobin C Crystals Not Reportable 08/07/17 06:25 Schistocytes Not Reportable 08/07/17 06:25 Malaria parasites Not Reportable 08/07/17 06:25 Wale Bodies Not Reportable 08/07/17 06:25 Hem Pathologist Commnt No 08/07/17 06:25 Sodium 137 mmol/L (137-145) 08/07/17 06:25 Potassium 4.1 mmol/L (3.6-5.0) D 08/07/17 06:25 Chloride 98.9 mmol/L (98-107) 08/07/17 06:25 Carbon Dioxide 25 mmol/L (22-30) 08/07/17 06:25 Anion Gap 17 mmol/L 08/07/17 06:25 BUN 6 mg/dL (7-17) L 08/07/17 06:25 Creatinine 0.6 mg/dL (0.7-1.2) L 08/07/17 06:25 Estimated GFR > 60 ml/min 08/07/17 06:25 BUN/Creatinine Ratio 10 % 08/07/17 06:25 Glucose 131 mg/dL (65-100) H 08/07/17 06:25 Lactic Acid 0.70 mmol/L (0.7-2.0) 08/06/17 12:02 Calcium 8.4 mg/dL (8.4-10.2) 08/07/17 06:25 Magnesium 1.80 mg/dL (1.7-2.3) 08/07/17 06:25 Total Bilirubin 0.30 mg/dL (0.1-1.2) 08/06/17 06:32 AST 8 units/L (5-40) 08/06/17 06:32 ALT 8 units/L (7-56) 08/06/17 06:32 Alkaline Phosphatase 61 units/L (35-129) 08/06/17 06:32 Total Protein 6.7 g/dL (6.3-8.2) 08/06/17 06:32 Albumin 3.4 g/dL (3.9-5) L 08/06/17 06:32 Albumin/Globulin Ratio 1.0 % 08/06/17 06:32 Urine Color Yellow (Yellow) 08/06/17 09:45 Urine Turbidity Clear (Clear) 08/06/17 09:45 Urine pH 5.0 (5.0-7.0) 08/06/17 09:45 Ur Specific [place] 1.024 (1.003-1.030) 08/06/17 09:45 Urine Protein 30 mg/dl mg/dL (Negative) 08/06/17 09:45 Urine Glucose (UA) Neg mg/dL (Negative) 08/06/17 09:45 Urine Ketones Neg mg/dL (Negative) 08/06/17 09:45 Urine Blood Mod (Negative) 08/06/17 09:45 Urine Nitrite Neg (Negative) 08/06/17 09:45 Urine Bilirubin Neg (Negative) 08/06/17 09:45 Urine Urobilinogen < 2.0 mg/dL (<2.0) 08/06/17 09:45 Ur Leukocyte Esterase Sm (Negative) 08/06/17 09:45 Urine WBC (Auto) 8.0 /HPF (0.0-6.0) H 08/06/17 09:45 Urine RBC (Auto) 9.0 /HPF (0.0-6.0) 08/06/17 09:45 U Epithel Cells (Auto) 41.0 /HPF (0-13.0) H 08/06/17 09:45 Urine Bacteria (Auto) 1+ /HPF (Negative) 08/06/17 09:45 Urine Mucus 1+ /HPF 08/06/17 09:45 Urine HCG, Qual Negative (Negative) 08/06/17 10:09
[2017-08-07] MEDS: LEVAQUIN 750MG/150ML 750 MG/150 ML BAG IV SCH (10:32)
--- NOTE | 2017-08-07 20:32 | Consultation ---
REFERRING PHYSICIAN: Lilo Meier MD INDICATION: 1. Abdominal pain. 2. Inflammatory bowel disease. HISTORY OF PRESENT ILLNESS: The patient is a 22-year-old black female with a history of inflammatory bowel disease, now presents for evaluation. The patient reports she was initially told she had ulcerative colitis and then more recently at . The patient reports she was on Remicade until 2 years ago when due to insurance and other reasons she stopped taking the medicine. She reports for the most part, she was stable. She reports recently she started having flare and saw Dr. Gallardo and had a colonoscopy within the last month. She reports she was on prednisone p.o. with plans to restart Remicade. The patient reports she started having 4 days' of lower abdominal pain with bloody stools and subsequently came to the Emergency Room. In the Emergency Room, she was assessed and CT scan done, which showed left-sided colitis. She subsequently admitted and GI consulted. She denies any upper GI symptoms. She denies any other specific GI problems or complaints. She denies any nausea or vomiting. PAST MEDICAL HISTORY: Inflammatory bowel disease. MEDICATIONS: See chart. ALLERGIES: No known drug allergies. SOCIAL HISTORY: Denies alcohol, tobacco, or IV drug abuse. FAMILY HISTORY: Negative for colon cancer, IBD, or liver disease. REVIEW OF SYSTEMS: GENERAL: She reports mild weakness. HEENT: No visual complaints or tinnitus. PULMONARY: No shortness of breath. No cough. No chest pain. GASTROINTESTINAL: Reports abdominal pain and loose stool. All points of 13-point review of systems otherwise negative. PHYSICAL EXAMINATION: VITAL SIGNS: Temperature of 98.4, pulse 89, respirations 18, blood pressure 103/65. GENERAL: Fairly nourished black female, in no acute distress. HEENT: Pupils equal, round and reactive to light and accommodation. Extraocular muscles are intact. PULMONARY: Clear to auscultation bilaterally. CARDIOVASCULAR: Regular rhythm. Normal S1, S2. ABDOMEN: Positive bowel sounds, soft. SKIN: No obvious rashes. LABORATORY AND DIAGNOSTIC DATA: Labs pertinent for white count of 9, hemoglobin and hematocrit of 8.6 and 29.3, platelet count of 560. Chem-7 is within normal limits. LFTs are within normal limits. CT scan showed colitis from the hepatic flexure and distally. ASSESSMENT: A 22-year-old female, inflammatory bowel disease with recent flare, now presents to [facility] with abdominal pain and bloody stools. The patient reports she was started on IV steroids overnight and is now feeling much better. She is tolerating p.o. Management is noted below. PLAN: 1. We will get TPN, hepatitis B labs as the patient is unsure of those were drawn by Dr. Gallardo. 2. Advance diet. 3. Continue steroids IV. The patient most likely can be switched to p.o. in a.m. 4. Team had started Levaquin and Flagyl and okay to continue for now, but will probably okay to discontinue soon. 5. Plan if stable in a.m. or okay to discharge from GI standpoint. We will follow up with Dr. Gallardo as an outpatient. JOB# [id number] [facility]
[2017-08-07] MEDS: DILAUDID IV PRN (22:55)
[2017-08-08] MEDS: NS/KCL 20MEQ 20 MEQ/1,000 ML BAG IV SCH (05:35)
[2017-08-08] MEDS: FLAGYL 500 MG/100 ML 500 MG/100 ML BAG IV SCH ×2 (05:35→14:18)
[2017-08-08] MEDS: DILAUDID IV PRN (07:36)
[2017-08-08 08:04] VITALS: BP 113/72
--- NOTE | 2017-08-08 09:18 | Gastroenterology Progress Note ---
Assessment and Plan GI: stable w/ mild rectal bleeding - ok to d/c on p.o. prednisone, Flagyl po ok, d/c levaquin - pt has f/u appoint regular GI - will sign off, call if needed Subjective Date of service: 08/08/17 Interval history: - reports mild rectal bleeding, otherwise stable Objective - Constitutional Vitals: Temp Pulse Resp BP Pulse Ox 98.2 F 86 19 113/72 100 08/08/17 07:36 08/08/17 07:36 08/08/17 07:36 08/08/17 07:36 08/08/17 07:36 General appearance: no acute distress - EENT Eyes: PERRL - Respiratory Respiratory: bilateral: CTA - Cardiovascular Rhythm: regular Heart Sounds: Present: S1 & S2 - Gastrointestinal General gastrointestinal: Present: soft, non-tender, non-distended - Labs CBC & Chem 7: 08/07/17 06:25 08/07/17 06:25 Labs: Laboratory Results - last 24 hr 08/08/17 06:04 Hep Bs Antigen Non-reactive
[2017-08-08] MEDS: LEVAQUIN 750MG/150ML 750 MG/150 ML BAG IV SCH (09:52)
--- NOTE | 2017-08-08 13:39 | Discharge Summary ---
Providers - Providers Date of Admission: 08/06/17 11:47 Attending physician: MEGHANA ALEXANDER MD 08/06/17 16:26 Consult to Physician [CONS] Routine Comment: Consulting Provider: PRINCESS BURDEN Physician Instructions: Reason For Exam: crohns disease Primary care physician: [employer] Hospitalization Condition: Stable Exam - Constitutional Vitals: Temp Pulse Resp BP Pulse Ox 98.2 F 86 19 113/72 100 08/08/17 07:36 08/08/17 07:36 08/08/17 07:36 08/08/17 07:36 08/08/17 07:36 Plan Follow up with: PRIMARY CARE, [Primary Care Provider] - 7 Days Prescriptions: metroNIDAZOLE [Flagyl] 500 mg PO Q8HR #21 tablet oxyCODONE /ACETAMINOPHEN [Percocet 5/325 mg] 1 tab PO Q6H PRN #20 tablet PRN Reason: Pain, Moderate (4-6) oxyCODONE /ACETAMINOPHEN [Percocet 5/325 mg] 1 tab PO Q6H PRN #20 tablet PRN Reason: Pain, Moderate (4-6)
== END 2017-08-08 14:10 | disposition home or self-care (01) | DRG 872 ==
LOC: ED 06:14 → 3A 11:47
PROVIDERS: ADMIT Internal Medicine; ATTEND Internal Medicine
DX: A41.9 Sepsis, unspecified organism (principal); N12 Tubulo-interstitial nephritis, not specified as acute or chronic; K50.911 Crohn's disease, unspecified, with rectal bleeding; D63.8 Anemia in other chronic diseases classified elsewhere; E87.6 Hypokalemia; K52.9 Noninfective gastroenteritis and colitis, unspecified; Z91.013 Allergy to seafood; Z82.49 Family history of ischemic heart disease and other diseases of the circulatory system
CPT/HCPCS: 36415; 74177; 80048; 80053; 81001; 81025; 82140; 83735; 85007; 85025; 86706; 87040; 87045; 87086; 87177; 87186; 99285; J0696; J1170; J1956; J2270; J2405; J2930; J7030; Q9967